=== PATIENT | male | born 1935 | race African-American/Black ===

== ENCOUNTER 2019-08-12 16:46 | Inpatient (IN) | payer MEDICARE, MEDICAID ==
[~2019-08-12] VITALS: Ht 170.2 cm; Wt 78.0 kg
[2019-08-12] MEDS ORDERED: SODIUM CHLORIDE 0.9% 500 ML IV ONE (17:18)
[2019-08-12 17:50] LABS: Basophils # (auto) 0 10 ^3/uL (0-0.2); Basophils % (auto) 0.2 % (0.0-2.0); Eosinophils # (auto) 0.2 10 ^3/uL (0-0.8); Eosinophils % (auto) 4.1 % (0.0-7.0); Hematocrit 32.2 % (41.0-53.0); Hemoglobin 10.7 g/dL (13.5-17.5); Lymphocytes # (auto) 0.6 10 ^3/uL (0.4-5.4); Lymphocytes % (auto) 13.2 % (10.0-50.0); Mean Corpuscular Hgb Conc. 33.4 g/dL (32.0-36.0); Mean Corpuscular Volume 89.8 fL (80.0-100.0); Monocytes # (auto) 0.5 10 ^3/uL (0-1.3); Monocytes % (auto) 10.5 % (0.0-12.0); Neutrophils # (auto) 3.4 10 ^3/uL (1.6-8.6); Nucleated Red Blood Cells % 0.1 %; Platelet Count (auto) 171 10^3/uL (140-450); Red Blood Cells 3.58 10^6/uL (4.5-5.90); Red Cell Distribution Width 14.5 % (11.8-14.3); White Blood Cell 4.7 10^3/uL (4.4-10.8)
[2019-08-12] MEDS ORDERED: NITROGLYCERIN 0.4 MG SL TAB SL PRN ×3 (18:00→18:15)
[2019-08-12] MEDS ORDERED: MORPHINE SULF INJ 2 MG/ML SYRINGE 1ML IV PRN ×3 (18:00→18:15)
[2019-08-12] MEDS ORDERED: SODIUM CHLORIDE 0.9% 1,000 ML IV SCH (18:02)
[2019-08-12 18:04] LABS: Albumin 2.9 g/dL (3.4-5.0); BUN/Creatinine Ratio 10.1; Calcium 8.4 mg/dL (8.5-10.1); Potassium 3.1 mmol/L (3.5-5.1)
[2019-08-12 18:06] LABS: Bilirubin, Total 0.6 mg/dL (0.2-1.0); Magnesium 1.7 mg/dL (1.6-2.6); Total Protein 6.8 g/dL (6.4-8.2)
[2019-08-12] MEDS ORDERED: ONDANSETRON HCL 4 MG/2 ML VIAL IV PRN (18:15)
[2019-08-12] MEDS ORDERED: LORazepam 0.5 MG TAB PO PRN (18:15)
[2019-08-12] MEDS ORDERED: MORPHINE SULFATE 4 MG/ML SYR/VIAL IV PRN (18:15)
[2019-08-12] MEDS ORDERED: POTASSIUM CHL 20MEQ/100ML 100 ML IV ONE (18:15)
[2019-08-12] MEDS ORDERED: HYDROcodone-ACET 5/325MG TAB PO PRN (18:15)
[2019-08-12] MEDS ORDERED: MAGNESIUM SULFATE 1GM/100ML 100 ML IV ONE (18:15)
[2019-08-12] MEDS ORDERED: ALUM & MAG HYDROX-SIMETH LIQ(MAALOX) 30 ML PO ONE (18:15)
[2019-08-12] MEDS ORDERED: FUROSEMIDE 20 MG/2 ML VIAL IV ONE (18:30)
[2019-08-12] MEDS: SOD CHL 0.9%/ KCL 20MEQ 1,000 ML IV SCH (18:51)
[2019-08-12 19:51] LABS: Urine Bacteria FEW /hpf (None Seen); Urine Blood Negative /uL (Negative); Urine Specific Gravity 1.009 (1.001-1.035); Urine WBC 1 /hpf (0 - 3)
[2019-08-12] MEDS: hydrALAZINE HCL 20 MG/ML VL IV PRN (21:40)
[2019-08-12] MEDS: ATORVASTATIN 20 MG TAB PO SCH (21:41)
[2019-08-12 22:00] VITALS: BP 182/86
[2019-08-12] MEDS ORDERED: CHOL20007 PO (22:41)
[2019-08-12] MEDS ORDERED: CAR3125T PO (22:43)
[2019-08-12] MEDS ORDERED: POM PO (22:43)
[2019-08-12] MEDS ORDERED: ATOR20TA50 PO (22:43)
[2019-08-13] MEDS: SOD CHL 0.9%/ KCL 20MEQ 1,000 ML IV SCH ×2 (04:15→16:32)
[2019-08-13 05:00] VITALS: BP 156/66
[2019-08-13 05:17] LABS: Basophils # (auto) 0 10 ^3/uL (0-0.2); Basophils % (auto) 0.2 % (0.0-2.0); Eosinophils # (auto) 0 10 ^3/uL (0-0.8); Hematocrit 33.4 % (41.0-53.0); Hemoglobin 11.3 g/dL (13.5-17.5); Lymphocytes # (auto) 0.5 10 ^3/uL (0.4-5.4); Lymphocytes % (auto) 3.8 % (10.0-50.0); Mean Corpuscular Hemoglobin 29.9 pg (28.0-32.0); Mean Corpuscular Hgb Conc. 33.7 g/dL (32.0-36.0); Mean Corpuscular Volume 88.6 fL (80.0-100.0); Monocytes # (auto) 0.6 10 ^3/uL (0-1.3); Monocytes % (auto) 4.4 % (0.0-12.0); Neutrophils # (auto) 13.3 10 ^3/uL (1.6-8.6); Neutrophils % (auto) 91.6 % (37.0-80.0); Platelet Count (auto) 182 10^3/uL (140-450); Red Blood Cells 3.78 10^6/uL (4.5-5.90); Red Cell Distribution Width 14.9 % (11.8-14.3); White Blood Cell 14.5 10^3/uL (4.4-10.8)
[2019-08-13 05:33] LABS: INR 1.03 (0.9-1.15); Partial Thromboplastin Time 22.8 sec (23.64-32.05)
[2019-08-13 05:39] LABS: Albumin 3.1 g/dL (3.4-5.0); Anion Gap 9 (5-15); Blood Urea Nitrogen 21 mg/dL (7-18); Calcium 9.1 mg/dL (8.5-10.1); Carbon Dioxide 23 mmol/L (21-32); Chloride 114 mmol/L (98-107); Glucose 131 mg/dL (74-106); Potassium 3.3 mmol/L (3.5-5.1); Sodium 146 mmol/L (136-145)
[2019-08-13 05:43] LABS: Alanine Aminotransferase 12 U/L (16-61); Alkaline Phosphatase 109 U/L (45-117); Aspartate Aminotransferase 11 U/L (15-37); BUN/Creatinine Ratio 12.6; Bilirubin, Total 0.6 mg/dL (0.2-1.0); Cholesterol 162 mg/dL (< 200); Creatine Kinase IFCC 46 U/L (39-308); GFR African American 51 mL/min; GFR Non-African American 42 mL/min; HDL Cholesterol 56 mg/dL (40-59); LDL Cholesterol 92 mg/dL (< 100); Phosphorus 3.6 mg/dL (2.5-4.90); Total Protein 7.1 g/dL (6.4-8.2); Triglycerides 58 mg/dL (< 150)
[2019-08-13] MEDS: FUROSEMIDE 20 MG/2 ML VIAL IV SCH ×2 (06:19→18:29)
[2019-08-13 08:33] VITALS: BP 140/65
[2019-08-13] MEDS: DOCUSATE SOD 100 MG CAP PO SCH (09:52)
[2019-08-13] MEDS: CHOLECALCIFEROL (VITD3) 1,000IU=25mCg TAB PO SCH (09:52)
[2019-08-13] MEDS: ASPirin 81 mg TAB PO SCH (09:52)
[2019-08-13] MEDS: ENOXAPARIN SOD 40 MG/0.4 ML SYRINGE SC SCH (09:53)
[2019-08-13] MEDS: LISINOPRIL 10 MG TAB PO SCH (09:53)
[2019-08-13] MEDS ORDERED: POTASSIUM CHL 20 Meq TABLET PO ONE (10:15)
[2019-08-13] MEDS ORDERED: LEUP22.52 IM (12:28)
[2019-08-13 12:30] VITALS: BP 139/71
[2019-08-13] MEDS ORDERED: AZITHROMYCIN 250 MG TAB PO ONE (12:30)
[2019-08-13] MEDS ORDERED: cefTRIAXone 1GM/50ML D5W 50 ML IV ONE (12:30)
[2019-08-13] MEDS ORDERED: MORPHINE SULF INJ 2 MG/ML SYRINGE 1ML IV PRN (12:45)
[2019-08-13 16:50] VITALS: BP 146/74
[2019-08-13 22:00] VITALS: BP 160/69
[2019-08-13] MEDS: ATORVASTATIN 20 MG TAB PO SCH (23:11)
[2019-08-14] MEDS: hydrALAZINE HCL 20 MG/ML VL IV PRN ×2 (00:05→09:28)
[2019-08-14] MEDS: SOD CHL 0.9%/ KCL 20MEQ 1,000 ML IV SCH ×3 (00:15→20:15)
[2019-08-14 05:00] VITALS: BP 138/66
[2019-08-14] MEDS: FUROSEMIDE 20 MG/2 ML VIAL IV SCH ×2 (07:07→18:25)
[2019-08-14] MEDS ORDERED: ADENOSINE 63 MG in GIVE UN-DILUTED 0 ML IV STA (08:10)
[2019-08-14 09:00] VITALS: BP 150/74
[2019-08-14] MEDS: DOCUSATE SOD 100 MG CAP PO SCH (09:27)
[2019-08-14] MEDS: CHOLECALCIFEROL (VITD3) 1,000IU=25mCg TAB PO SCH (09:27)
[2019-08-14] MEDS: ASPirin 81 mg TAB PO SCH (09:27)
[2019-08-14] MEDS: LISINOPRIL 10 MG TAB PO SCH (09:27)
[2019-08-14] MEDS: cefTRIAXone 1GM/50ML D5W 50 ML IV SCH (09:27)
[2019-08-14] MEDS: AZITHROMYCIN 250 MG TAB PO SCH (09:28)
[2019-08-14] MEDS: ENOXAPARIN SOD 40 MG/0.4 ML SYRINGE SC SCH (09:28)
[2019-08-14 13:00] VITALS: BP 132/73
[2019-08-14 16:28] VITALS: BP 129/86
[2019-08-14 22:00] VITALS: BP 139/85
[2019-08-15] MEDS: ATORVASTATIN 20 MG TAB PO SCH (00:26)
[2019-08-15 05:00] VITALS: BP 133/70
[2019-08-15] MEDS: SOD CHL 0.9%/ KCL 20MEQ 1,000 ML IV SCH (06:15)
[2019-08-15] MEDS: FUROSEMIDE 20 MG/2 ML VIAL IV SCH (07:29)
[2019-08-15 08:53] VITALS: BP 158/71
[2019-08-15] MEDS: DOCUSATE SOD 100 MG CAP PO SCH (10:00)
[2019-08-15] MEDS: ENOXAPARIN SOD 40 MG/0.4 ML SYRINGE SC SCH (10:00)
[2019-08-15] MEDS: ASPirin 81 mg TAB PO SCH (10:02)
[2019-08-15] MEDS: AZITHROMYCIN 250 MG TAB PO SCH (10:02)
[2019-08-15] MEDS: LISINOPRIL 10 MG TAB PO SCH (10:03)
[2019-08-15] MEDS: CHOLECALCIFEROL (VITD3) 1,000IU=25mCg TAB PO SCH (10:03)
[2019-08-15] MEDS: cefTRIAXone 1GM/50ML D5W 50 ML IV SCH (10:05)
[2019-08-15] MEDS ORDERED: POTASSIUM CHL 20 Meq TABLET PO ONE (10:30)
[2019-08-15 10:39] VITALS: BP 158/71
== END 2019-08-15 14:00 | disposition home or self-care (01) | DRG 314 ==
LOC: EDBD 16:46 → ER 16:46 → TELE 16:47 → TELE-WESTW 20:10
PROVIDERS: ADMIT Hospitalist; ATTEND Family Medicine
DX: I95.9 Hypotension, unspecified (principal); E43 Unspecified severe protein-calorie malnutrition; J18.9 Pneumonia, unspecified organism; I63.9 Cerebral infarction, unspecified; I50.32 Chronic diastolic (congestive) heart failure; R00.1 Bradycardia, unspecified; Z85.46 Personal history of malignant neoplasm of prostate; I11.0 Hypertensive heart disease with heart failure; E78.5 Hyperlipidemia, unspecified; E55.9 Vitamin D deficiency, unspecified; D63.8 Anemia in other chronic diseases classified elsewhere; E11.65 Type 2 diabetes mellitus with hyperglycemia; E78.00 Pure hypercholesterolemia, unspecified; E86.0 Dehydration; E87.6 Hypokalemia; W18.39XA Other fall on same level, initial encounter; F17.200 Nicotine dependence, unspecified, uncomplicated; R32 Unspecified urinary incontinence; Z79.818 Long term (current) use of other agents affecting estrogen receptors and estrogen levels; Z82.49 Family history of ischemic heart disease and other diseases of the circulatory system; Z83.3 Family history of diabetes mellitus; Z86.73 Personal history of transient ischemic attack (TIA), and cerebral infarction without residual deficits; Z79.84 Long term (current) use of oral hypoglycemic drugs; Y93.89 Activity, other specified; Y92.89 Other specified places as the place of occurrence of the external cause; Y99.8 Other external cause status; Z90.49 Acquired absence of other specified parts of digestive tract; Z79.899 Other long term (current) drug therapy
CPT/HCPCS: 36415; 70450; 70551; 71045; 78452; 80053; 80061; 81001; 82085; 82550; 82962; 83036; 83735; 83880; 84100; 84443; 84484; 85025; 85379; 85610; 85730; 87040; 87086; 93017; 93306; 93886; 95819; 99291; G0378; J0153; J0696; J3480